=== PATIENT | female | born 1985 | race Caucasian/White ===

== ENCOUNTER 2018-12-04 10:08 | Day surgery (SDC) | payer BC ==
[~2018-12-04] VITALS: Ht 157.5 cm; Wt 80.7 kg
[2018-12-04 10:38] VITALS: BP 141/90; PULSE 81; TEMP 97.2
--- NOTE | 2018-12-04 10:47 | NUR ---
TO RM AT 1017- MOTHER IS IN WAITING RM WITH HER SON AND WILL COME BACK TO TALK WITH DR AFTER PROCEDURE.
[2018-12-04 12:10] VITALS: BP 131/81; PULSE 83; TEMP 98.1
--- NOTE | 2018-12-04 12:10 | NUR ---
Pt to gi [facility] via cart from [facility]. Pt awake and alert. Pt ambulates to recliner with stand by assistance. Warm blanket given. Mother in room. Sprite, jello and muffin given per pt request. Will continue to monitor. Call light within reach.
[2018-12-04 12:25] VITALS: BP 124/78; PULSE 73
--- NOTE | 2018-12-04 12:25 | NUR ---
Pt continues to rest. Tolerating food and fluids without diffiuculties. Will continue to monitor.
[2018-12-04 12:40] VITALS: BP 128/87; PULSE 74
--- NOTE | 2018-12-04 12:40 | NUR ---
Pt continues to rest. Denies needs. Call light within reach.
[2018-12-04 12:55] VITALS: BP 132/68; PULSE 74
--- NOTE | 2018-12-04 12:58 | NUR ---
Discharge instructions reviewed. Pt voices understanding. IV site discontinued with all parts intact. Pt up to dress. Call light within reach.
--- NOTE | 2018-12-04 13:05 | NUR ---
Pt escorted to private car via wheel chair. Pt accompanied home by her mother.
== END 2018-12-04 13:05 | disposition home or self-care (01) ==
LOC: SDCO 10:08
DX: K21.0 Gastro-esophageal reflux disease with esophagitis (principal); R19.7 Diarrhea, unspecified; R10.13 Epigastric pain; R10.84 Generalized abdominal pain; Z79.899 Other long term (current) drug therapy
CPT/HCPCS: OP; J2250; J3010; J7030